=== PATIENT | female | born 1980 | race Caucasian/White ===

== ENCOUNTER → 2021-02-03 | Outpatient (CLI) | payer OTHER ==
--- NOTE | 2021-02-03 13:58 | DIREP ---
PROCEDURE:CHEST 2 VIEWS COMPARISON:None. INDICATIONS:SOB/COUGH FINDINGS: LUNGS/PLEURA:On the PA view, there is a 6 mm nodule in the right midlung field, thought be a calcified granuloma, or possibly a bone island in the 3rd anterior rib. No effusions. VASCULATURE:Normal. Unremarkable pulmonary vasculature. CARDIAC:Normal. No cardiac silhouette abnormality or cardiomegaly. MEDIASTINUM:Normal. No visible mass or adenopathy. BONES:Normal. No fracture or visible bony lesion. OTHER:Breast implants are noted. CONCLUSION: 1. No acute abnormality is identified. 2. The density in the right mid lung field is thought be a calcified granuloma or bone island. Dictated by: Idania Palma III, MD on 02/03/2021 at 01:53 PM
== END | disposition home or self-care (01) ==
LOC: RAD 13:26
PROVIDERS: ATTEND Pediatrics
DX: R91.1 Solitary pulmonary nodule (principal); R06.02 Shortness of breath; R05 Cough
CPT/HCPCS: 71046